=== PATIENT | female | born 1975 | race Hispanic/Latino ===

== ENCOUNTER 2023-07-08 14:51 | Emergency (ER) | payer SELFPAY ==
[2023-07-08 14:57] VITALS: BP 119/83
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
[2023-07-08] MEDS: MOTRIN 600 MG PO (16:11)
== END 2023-07-08 16:29 | disposition home or self-care (01) ==
LOC: EMR 14:51
PROVIDERS: EMERGENCY PHYSICIAN Emergency Medicine
DX: S20.219A Contusion of unspecified front wall of thorax, initial encounter (principal); S46.911A Strain of unspecified muscle, fascia and tendon at shoulder and upper arm level, right arm, initial encounter; V89.2XXA Person injured in unspecified motor-vehicle accident, traffic, initial encounter
CPT/HCPCS: 99283; 71101; 73030

== ENCOUNTER → 2023-07-28 13:55 | Outpatient (REF) | payer OTHER, SELFPAY | LOC: HWRAD 13:55 | PROVIDERS: ATTENDING PHYSICIAN Chiropractor | DX: M54.12 Radiculopathy, cervical region (principal); M99.01 Segmental and somatic dysfunction of cervical region; M62.40 Contracture of muscle, unspecified site; M99.02 Segmental and somatic dysfunction of thoracic region; M53.2X7 Spinal instabilities, lumbosacral region | CPT/HCPCS: 72052; 72072; 72110 ==

== ENCOUNTER → 2023-10-05 19:17 | Outpatient (REF) | payer OTHER, SELFPAY | LOC: MRI 19:17 | PROVIDERS: ATTENDING PHYSICIAN Neurological Surgery | DX: S34.5XXA Injury of lumbar, sacral and pelvic sympathetic nerves, initial encounter (principal) | CPT/HCPCS: 72148 ==